=== PATIENT | male | born 2000 | race Caucasian/White ===

== ENCOUNTER → 2024-11-06 06:27 | Day surgery (SDC) | payer OTHER, SELFPAY | LOC: GI 06:27 | PROVIDERS: ATTENDING PHYSICIAN Student in an Organized Health Care Education/Training Program | DX: K20.0 Eosinophilic esophagitis (principal); K22.2 Esophageal obstruction; K22.89 Other specified disease of esophagus; R13.10 Dysphagia, unspecified; Z87.19 Personal history of other diseases of the digestive system | CPT/HCPCS: 43239; 88305 ==

== ENCOUNTER 2024-11-06 17:27 | Emergency (ER) | payer OTHER, SELFPAY ==
[2024-11-06 17:29] VITALS: BP 166/111
[2024-11-06 17:58] LABS: % Basophils 0.2 % (0-2); % Eosinophils 0.8 % (0-6); % Immature Granulocytes 0.3 % (0-0.5); % Lymphocytes 9.9 % (20.5-51.1); % Monocytes 6.5 % (1.7-9.3); % Neutrophils 82.3 % (42.2-75.2); Absolute Eosinophils 0.1 10^3/uL (0-0.7); Absolute Lymphocytes 1.2 10^3/uL (1.2-3.4); Absolute Monocytes 0.8 10^3/uL (0.1-0.6); Absolute Neutrophils 10.2 10^3/uL (1.4-6.5); Hematocrit 44.5 % (39.0-52.0); Hemoglobin 15.7 g/dL (13.0-18.0); Mean Corp Hgb Conc. 35.3 g/dL (33.0-37.0); Mean Corpuscular Hgb 29.9 pg (27.0-31.0); Mean Corpuscular Volume 84.8 fL (80.0-94.0); Nucleated Red Blood Cells % 0 % (-); Platelet Count 235 10^3/uL (130-400); Red Blood Cell Count 5.25 10^6/uL (4.70-6.10); White Blood Cell Count 12.4 10^3/uL (4.8-10.8)
[2024-11-06 18:14] LABS: ALT (SGPT) 35 U/L (0-50); AST (SGOT) 26 U/L (17-59); Albumin 4.8 g/dl (3.5-5.0); Alkaline Phosphatase 52 U/L (38-126); Blood Urea Nitrogen 17 mg/dl (9-20); Calcium 9.9 mg/dl (8.4-10.2); Carbon Dioxide 26 mmol/L (22-30); Chloride 100 mmol/L (98-107); Glucose 120 mg/dl (70-99); Potassium 3.9 mmol/L (3.5-5.1); Sodium 138 mmol/L (135-145); Total Bilirubin 0.9 mg/dl (0.2-1.3); Total Protein 7.2 g/dl (6.3-8.2); eGFR > 60.00
--- NOTE | 2024-11-06 18:17 | ED.GENMED ---
History of Present Illness
General
Chief Complaint: Abdominal Symptoms
Source: patient
Exam Limitations: none
Time Seen by Provider: 11/06/24 17:49
Nursing documentation reviewed up to this point in time: agreed with
History of Present Illness
History of Present Illness:
Patient to ED with complaint of fever, chest pain. States he had an endoscopy today. Told he had 2 small esophageal tears from instrument but otherwise normal exam. Brought to ED by mother due to fever at home.
Past History
Past History
ED Past Medical History: None
ED Past Surgical History: None
Review of Systems
Review of Systems
Allergies reviewed?: Yes
All Other Systems: ROS reviewed and negative except as documented in HPI and ROS
Constitutional: Reports fever
EENT: Reports sore throat
Respiratory: Reports no symptoms
Cardiac: Reports chest pain
ABD/GI: Reports no symptoms
: Reports no symptoms
Musculoskeletal: Reports no symptoms
Skin: Reports no symptoms
Neurological: Reports no symptoms
Psychiatric: Reports no symptoms
Phy Exam
General Physical Exam
General Presentation: well appearing and no apparent distress
General age: appears stated age
General Skin: warm and dry
General Habitus: normal
General Mental: alert
Cardiovascular Exam
Cardiovascular Exam: regular rate/rhythm and no edema
Pulmonary Exam
Pulmonary Exam: no respiratory distress and chest non tender
Gastrointestinal Exam
Gastrointestinal Exam: normal bowel sounds, non tender, soft and no organomegaly
Musculoskeletal Exam
Musculoskeletal Exam: full ROM and neuro vasc intact
Skin Exam
Skin Exam: normal color, warm/dry and no rash
Psychiatric Exam
Psychiatric Exam: normal mood/affect
Course
Orders/Labs/Results
Orders:
Orders
11/06/24 17:33
Electrocardiogram (*1) Urgent
Reason for Study: Chest Pain
11/06/24 17:34
EKG- Treatment ONCE
11/06/24 17:39
CR Chest - 2 Views Urgent
Comment: Pt developed pain after upper endoscopy this am
Reason For Exam: chest pain, n/v
11/06/24 17:46
Complete Blood Count/With Diff Urgent
Comprehensive Metabolic Panel Urgent
11/06/24 18:15
0.9% Sodium Chloride 1000 ml [Nss] 1,000 ml IV BOLUS
Acetaminophen 1000MG/100Ml [Ofirmev] 1,000 mg in 100 ml IV ONCE
Acetaminophen IV Indication:: No MN & No Enteral Access
11/06/24 18:18
Pantoprazole [Protonix IV] 40 mg IV NOW STA
Abnormal Lab Results
11/06/24
17:46
WBC 12.4 H 10^3/uL
(4.8-10.8)
Absolute Neuts (auto) 10.2 H 10^3/uL
(1.4-6.5)
Absolute Monos (auto) 0.8 H 10^3/uL
(0.1-0.6)
Neutrophils % 82.3 H %
(42.2-75.2)
Lymphocytes % 9.9 L %
(20.5-51.1)
Glucose 120 H mg/dl
(70-99)
11/06/24 17:46
11/06/24 17:46
Vital Signs
Initial and Last Documented VS:
Initial Vital Signs
Temp Pulse Resp BP Pulse Ox
98.8 F 124 18 166/111 98
11/06/24 17:29 11/06/24 17:29 11/06/24 17:29 11/06/24 17:29 11/06/24 17:29
Last Documented Vital Signs
Temp Pulse Resp BP Pulse Ox
98.8 F 96 26 90/44 96
11/06/24 17:29 11/06/24 20:00 11/06/24 20:00 11/06/24 20:00 11/06/24 20:00
*Radiology
Radiology exam reviewed: radiology read reviewed
*Pulse Oximetry
Patient hypoxic: no
*Critical Care Note
Total Time (30-74mins, 75-104mins- exclusive of procedures): Not Applicable
Update Note
Update Note:
Patient to ED with complaint of chest pain after endoscopy this AM. CXR NAD. He improved with IVF, Protonix, tylenol. Afebrile. Discussed presentation and findings with Dr. Posadas. Will dishcarge home, he will follow up with Dr. Maldonado in AM
ED Attending Note
-
Portions of this chart may have been created with voice recognition software.� Occasional wrong word or��sound alike� substitutions may have occurred due to the inherent limitations of voice recognition software.
Discharge Plan
Departure
Patient Disposition: Home (Routine Discharge)
Date of Disposition: 11/06/24
Time of Disposition: 20:44
Patient with high blood pressure during this ER visit?: No
Condition: Good
Covid-19: Not Applicable
Discharge Problem:
Chest pain
Instructions: Clear Liquid Diet
Referrals:
NONE,* [Family Provider] -
Bennett Maldonado, DO [Active] - Tomorrow
Activity Restrictions/Additional Instructions:
Return to the emergency department immediately for any changes in/worsening of your symptoms.
Interventions
Interventions:
*Risk Screen - Suicide Last Done: 11/06/24 17:29
*General Assessment Last Done: 11/06/24 17:29
*Neglect/Abuse Screening Last Done: 11/06/24 17:29
ED- Fall Risk Assessment Last Done: 11/06/24 17:54
*ED COVID-19 Vaccine History Last Done: 11/06/24 17:53
*Nursing Disposition Last Done: 11/06/24 20:47
[facility] Assessment Last Done: 11/06/24 17:54
Discharge Date and Time
Discharge Date/Time: 11/06/24 21:01
Print Language: GRENADIAN
[2024-11-06 18:21] VITALS: BMI 24.9
[2024-11-06 18:23] VITALS: BP 111/58
[2024-11-06] MEDS: NSS 1000 IV (18:32)
[2024-11-06] MEDS: OFIRMEV 100 IV (18:32)
[2024-11-06] MEDS: PROTONIX IV 40 MG IV (18:32)
[2024-11-06 19:00] VITALS: BP 104/65
[2024-11-06 20:00] VITALS: BP 90/44
== END 2024-11-06 21:01 | disposition home or self-care (01) ==
LOC: EMR 17:27
PROVIDERS: EMERGENCY PHYSICIAN Student in an Organized Health Care Education/Training Program
DX: R07.9 Chest pain, unspecified (principal); Z98.890 Other specified postprocedural states
CPT/HCPCS: 99285; 96374; 96375; 96361; 71046; 80053; 85025; 93005

== ENCOUNTER 2025-02-21 06:22 | Day surgery (SDC) | payer OTHER, SELFPAY | END 2025-02-21 13:39 | disposition home or self-care (01) | LOC: GI 06:22 | PROVIDERS: ATTENDING PHYSICIAN Student in an Organized Health Care Education/Training Program | DX: K22.89 Other specified disease of esophagus (principal); K20.0 Eosinophilic esophagitis; K29.50 Unspecified chronic gastritis without bleeding | CPT/HCPCS: 43239; 88305; 88342 ==